=== PATIENT | male | born 1970 | race Hispanic/Latino ===

== ENCOUNTER 2020-09-22 17:50 | Emergency (ER) | payer OTHER ==
[~2020-09-22] VITALS: Ht 165.1 cm; Wt 76.2 kg
[2020-09-22 17:52] VITALS: BP 143/94
[2020-09-22] MEDS ORDERED: LIDOCAINE HCL 1% 20 ML VIAL INJ STA (18:12)
[2020-09-22] MEDS ORDERED: LIDOCAINE HCL 1% 20 ML VIAL ONE (18:16)
[2020-09-22] MEDS ORDERED: GRAMICIDIN OD SCH (18:45)
[2020-09-22] MEDS ORDERED: NEOMYCIN OD SCH (18:45)
[2020-09-22] MEDS ORDERED: POLYMYXIN B OD SCH (18:45)
[2020-09-22] MEDS ORDERED: CEPH500B PO (18:49)
== END 2020-09-22 19:01 | disposition home or self-care (01) ==
LOC: EDH 17:50
DX: S61.411A Laceration without foreign body of right hand, initial encounter (principal); W26.8XXA Contact with other sharp object(s), not elsewhere classified, initial encounter; Y93.89 Activity, other specified; Y92.89 Other specified places as the place of occurrence of the external cause; Y99.8 Other external cause status
CPT/HCPCS: 12002